=== PATIENT | male | born 1985 | race Caucasian/White ===

== ENCOUNTER 2016-11-11 01:04 | Emergency (ER) | payer MEDICAID, OTHER, SELFPAY ==
[~2016-11-11] VITALS: Ht 172.7 cm; Wt 83.9 kg
[2016-11-11] MEDS ORDERED: KETOROLAC 30 MG/ML VIAL (J1885) IV ONE (01:30)
[2016-11-11] MEDS ORDERED: ONDANSETRON 4MG/2ML VIAL (J2405) As Ordered ONE (01:38)
[2016-11-11] MEDS ORDERED: ONDANSETRON 4MG/2ML VIAL (J2405) IV ONE (01:45)
[2016-11-11 02:01] LABS: CALCIUM OXALATE CRYSTALS SMALL
[2016-11-11 02:05] LABS: BASO # 0.1 K/mm3 (0.0-0.2); BASO % 0.5 % (0.0-1.0); EOS # 0.2 K/mm3 (0.0-0.50); EOS % 1.3 % (0.0-3.0); LARGE UNSTAINED CELL # 0.3 K/mm3 (0.0-0.4); LARGE UNSTAINED CELL % 1.8 % (0.0-4.0); LYMPH # 1.7 K/mm3 (1.5-4.5); MEAN CORPUSCULAR HEMOGLOBIN 32.9 pg (27.0-33.0); MEAN CORPUSCULAR HGB CONC 36.2 g/dl (32.0-36.5); MEAN CORPUSCULAR VOLUME 90.8 fl (80.0-96.0); MONO # 1.1 K/mm3 (0.0-0.8); MONO % 6.3 % (0.0-5.0); NEUTROPHILS % 80.1 % (36.0-66.0); PLATELET COUNT, AUTOMATED 214 k/mm3 (150-450); RED CELL DISTRIBUTION WIDTH 11.7 % (11.5-14.5); WHITE BLOOD COUNT 17.4 K/mm3 (4.0-10.0)
[2016-11-11] MEDS ORDERED: TAMSULOSIN 0.4 MG CAP PO ONE (02:15)
[2016-11-11] MEDS ORDERED: HYDROmorphone HCL 1 MG/ML SYRINGE (J1170) IV ONE (02:15)
[2016-11-11 02:16] LABS: ALBUMIN/GLOBULIN RATIO 1.38 (1.00-1.93); ALKALINE PHOSPHATASE 117 U/L (45-117); ALT/SGPT 18 U/L (12-78); AMYLASE 46 U/L (25-115); ANION GAP 9 MEQ/L (8-16); AST/SGOT 13 U/L (15-37); BILIRUBIN,DIRECT 0.3 MG/DL (0.0-0.2); BILIRUBIN,TOTAL 1.9 MG/DL (0.2-1.0); BLOOD UREA NITROGEN 20 MG/DL (7-18); CALCIUM LEVEL 8.9 MG/DL (8.5-10.1); CARBON DIOXIDE LEVEL 31 MEQ/L (21-32); CHLORIDE LEVEL 102 MEQ/L (98-107); CREATININE FOR GFR 1.34 MG/DL (0.70-1.30); GLOMERULAR FILTRATION RATE > 60.0 (>60); GLUCOSE, FASTING 113 MG/DL (70-105); POTASSIUM SERUM 3.4 MEQ/L (3.5-5.1); SODIUM LEVEL 142 MEQ/L (136-145); TOTAL PROTEIN 6.9 GM/DL (6.4-8.2)
--- NOTE | 2016-11-11 02:40 | REPUSA ---
CLINICAL HISTORY: Abdominal pain. TECHNIQUE: Multiple axial, sagittal and coronal CT images were obtained through the abdomen and pelvi s without administration of oral or IV contrast material. COMMENTS: The liver is of uniform attenuation without mass or defect. There is no intra or extrahepatic biliary ductal dilatation. The spleen is normal. The gallbladder is within normal limits. The pancreas is of normal contour and attenuation characteristics. There is no evidence of adrenal mass. 3 mm obstructing stone of the right ureterovesical junction. Mild right hydroureteronephrosis. Fluid-filled distended stomach suggestive of gastroparesis. No renal or left ureteral calculi are identified. There is no left hydroureter or hydronephrosis. There is no evidence for appendicitis. There is no bowel wall thickening. No evidence for small or la rge bowel obstruction. There is no evidence of abdominal ascites or lymphadenopathy. There is no evidence of intrinsic or extrinsic bladder mass. There is no pelvic ascites or lymphadeno addison. Images of the lung bases show no evidence of pleural or parenchymal mass. There are no pleural effusi ons. The bony structures are free of lytic or blastic lesions. IMPRESSION: Obstructing stone of the right ureterovesical junction. Gastroparesis. Thank you for your kind referral of this patient.
[2016-11-11] MEDS ORDERED: NS 1,000 ML IV ONE (03:15)
[2016-11-11 05:06] VITALS: BP 122/65
[2016-11-11] MEDS ORDERED: ZOFR4TAB3 PO (13:34)
[2016-11-11] MEDS ORDERED: PERC5TAB6 PO (13:34)
== END 2016-11-11 05:08 | disposition home or self-care (01) ==
LOC: M ED 02:35
DX: N20.1 Calculus of ureter (principal); Z87.442 Personal history of urinary calculi; Z88.8 Allergy status to other drugs, medicaments and biological substances
CPT/HCPCS: 36415; 74176; 80048; 80076; 81001; 82150; 83690; 85025; 87086; 96361; 96374; 96375; 99283; J1170; J1885; J2405

== ENCOUNTER 2016-11-11 12:17 | Emergency (ER) | payer MEDICAID, SELFPAY ==
[~2016-11-11] VITALS: Ht 170.2 cm; Wt 83.9 kg
[2016-11-11] MEDS ORDERED: MORPHINE 4 MG/ML 1ML SYRINGE IV ONE (12:45)
[2016-11-11] MEDS ORDERED: ONDANSETRON 4MG/2ML VIAL (J2405) IV ONE (12:45)
[2016-11-11] MEDS ORDERED: NS 1,000 ML IV SCH (12:45)
[2016-11-11] MEDS ORDERED: KETOROLAC 30 MG/ML VIAL (J1885) IV ONE (12:45)
[2016-11-11 13:09] LABS: MEAN CORPUSCULAR HEMOGLOBIN 33.4 pg (27.0-33.0); MEAN CORPUSCULAR HGB CONC 36.1 g/dl (32.0-36.5); MEAN CORPUSCULAR VOLUME 92.5 fl (80.0-96.0); RED CELL DISTRIBUTION WIDTH 11.5 % (11.5-14.5); WHITE BLOOD COUNT 14.6 K/mm3 (4.0-10.0)
[2016-11-11 13:22] LABS: CALCIUM LEVEL 8.4 MG/DL (8.5-10.1); CREATININE FOR GFR 1.6 MG/DL (0.70-1.30); GLOMERULAR FILTRATION RATE 53.9 (>60)
[2016-11-11] MEDS ORDERED: PERC5TAB6 PO (13:34)
[2016-11-11] MEDS ORDERED: ZOFR4TAB3 PO (13:34)
[2016-11-11 13:37] VITALS: BP 110/55
--- NOTE | 2016-11-11 13:59 | REP ---
Renal ultrasound: Comparison is a CT abdomen pelvis performed 01:33 a.m. today. On the comparison CT there was a 3 mm ureteral calculus in the distal right ureter and mild right hydronephrosis. On the ultrasound study the right kidney demonstrates mild hydronephrosis. There is questionably a nonobstructive calculus in the upper pole of the right kidney, however, no right renal calculus was identified on the comparison CT. There is no right renal mass or cyst. The right kidney is normal size measuring 10.7 x 5.6 x 4.9 cm. Left kidney: Left kidney is normal size measuring 10.9 x 5.5 x 5.1 cm. There is no hydronephrosis, calculus, mass or cyst. The urinary bladder is collapsed and cannot be assessed. Impression: Mild right hydronephrosis. Signed by Hudson Moran MD 11/11/2016 01:50 P
== END 2016-11-11 13:57 | disposition home or self-care (01) ==
LOC: M ED 13:09
DX: N20.1 Calculus of ureter (principal); Z87.442 Personal history of urinary calculi; F17.210 Nicotine dependence, cigarettes, uncomplicated; Z88.8 Allergy status to other drugs, medicaments and biological substances
CPT/HCPCS: 76775; 80048; 85027; 96374; 96375; 99282; J1885; J2405

== ENCOUNTER → 2017-03-19 | Outpatient (CLI) | payer SELFPAY ==
[~2017-03-19] MED LIST: PERC5TAB12 PO; ZOFR4TAB3 PO
== END ==
LOC: M OUTALCOH 12:23
PROVIDERS: ATTEND Psychiatry & Neurology Psychiatry
DX: F12.20 Cannabis dependence, uncomplicated (principal); F15.20 Other stimulant dependence, uncomplicated

== ENCOUNTER 2018-03-26 09:00 | Emergency (ER) | payer OTHER, SELFPAY | END 2018-03-26 09:59 | disposition home or self-care (01) | LOC: M ED 09:00 | DX: H66.002 Acute suppurative otitis media without spontaneous rupture of ear drum, left ear (principal); F43.10 Post-traumatic stress disorder, unspecified; K21.9 Gastro-esophageal reflux disease without esophagitis; Z88.8 Allergy status to other drugs, medicaments and biological substances | CPT/HCPCS: 99282 ==

== ENCOUNTER 2018-04-28 10:56 | Emergency (ER) | payer OTHER, SELFPAY ==
[2018-04-28] MEDS: NS 1,000 ML IV ×2 (12:04)
[2018-04-28] MEDS: ONDANSETRON 4MG/2ML VIAL (J2405) IV ×2 (12:04)
[2018-04-28] MEDS: KETOROLAC 30 MG/ML VIAL (J1885) IV ×2 (12:04)
[2018-04-28 12:09] LABS: BASO % 0.5 % (0.0-1.0); EOS # 0.3 10^3/uL (0.0-0.50); EOS % 3.5 % (0.0-3.0); HEMATOCRIT 42.9 % (42.0-52.0); HEMOGLOBIN 14.7 g/dl (13.5-17.5); IMMATURE GRANULOCYTE % 0.4 % (0-3.0); LYMPH # 1.8 10^3/uL (1.5-4.5); LYMPH % 23.1 % (24.0-44.0); MEAN CORPUSCULAR HGB CONC 34.3 g/dl (32.0-36.5); MEAN CORPUSCULAR VOLUME 93.5 fl (80.0-96.0); MONO # 0.6 10^3/uL (0.0-0.8); MONO % 8.2 % (0.0-5.0); NEUTROPHILS % 64.3 % (36.0-66.0); PLATELET COUNT, AUTOMATED 181 10^3/uL (150-450); RED BLOOD COUNT 4.59 10^6/uL (4.30-6.10); RED CELL DISTRIBUTION WIDTH 11.5 % (11.5-14.5); WHITE BLOOD COUNT 7.7 10^3/uL (4.0-10.0)
[2018-04-28 12:13] LABS: KETONE, URINE AUTO RFX NEGATIVE (NEGATIVE); LEUKOCYTE ESTERASE UR AUTO RFX NEGATIVE (NEGATIVE); MUCUS, URINE RFX SMALL (NEGATIVE); NITRITE, URINE AUTO RFX NEGATIVE (NEGATIVE); RBC, URINE AUTO RFX 0 /HPF (0-3); SPECIFIC GRAVITY UR AUTO RFX 1.008 (1.002-1.035); SQUAM EPITHELIAL CELL UR AURFX 0 /HPF (0-6); WBC, URINE AUTO RFX 0 /HPF (0-3)
[2018-04-28] MEDS: methylPREDNISolone INJ 125 MG/2 ML VIAL (J2930) IV ×2 (12:18)
[2018-04-28] MEDS: diphenhydrAMINE INJ 50MG/ML VIAL (J1200) IV ×2 (12:18)
[2018-04-28 12:36] LABS: ALBUMIN 3.9 GM/DL (3.2-5.2); ALBUMIN/GLOBULIN RATIO 1.34 (1.00-1.93); ALKALINE PHOSPHATASE 91 U/L (45-117); ALT/SGPT 36 U/L (12-78); ANION GAP 5 MEQ/L (8-16); AST/SGOT 25 U/L (7-37); BILIRUBIN,DIRECT 0.2 MG/DL (0.0-0.2); BILIRUBIN,TOTAL 1.2 MG/DL (0.2-1.0); BLOOD UREA NITROGEN 15 MG/DL (7-18); CALCIUM LEVEL 8.5 MG/DL (8.5-10.1); CARBON DIOXIDE LEVEL 31 MEQ/L (21-32); CHLORIDE LEVEL 107 MEQ/L (98-107); CREATININE FOR GFR 1.17 MG/DL (0.70-1.30); GLOMERULAR FILTRATION RATE > 60.0 (>60); GLUCOSE, FASTING 77 MG/DL (70-100); LIPASE 111 U/L (73-393); POTASSIUM SERUM 4.2 MEQ/L (3.5-5.1); SODIUM LEVEL 143 MEQ/L (136-145); TOTAL PROTEIN 6.8 GM/DL (6.4-8.2)
[2018-04-28] MEDS ORDERED: ISOVUE-370 76% 100ML VIAL (Q9967) As Ordered ×2 (13:07)
== END 2018-04-28 14:06 | disposition home or self-care (01) ==
LOC: M ED 10:56
DX: R10.11 Right upper quadrant pain (principal); R10.31 Right lower quadrant pain; R11.2 Nausea with vomiting, unspecified; K21.9 Gastro-esophageal reflux disease without esophagitis; Z87.442 Personal history of urinary calculi; F43.10 Post-traumatic stress disorder, unspecified; Z88.3 Allergy status to other anti-infective agents; Z79.899 Other long term (current) drug therapy; Z72.0 Tobacco use
CPT/HCPCS: J1200

== ENCOUNTER 2018-06-16 20:16 | Emergency (ER) | payer OTHER ==
[2018-06-16 21:05] LABS: INFLUENZA A AMPLIFICATION NEGATIVE (NEGATIVE); INFLUENZA B AMPLIFICATION NEGATIVE (NEGATIVE)
[2018-06-16] MEDS: IBUPROFEN 600 MG TAB PO (21:30)
[2018-06-16] MEDS: PSEUDOEPHEDRINE 30 MG TAB PO (21:50)
[2018-06-16] MEDS: MAGIC MOUTHWASH SUSPENSION BTL SS (21:50)
== END 2018-06-16 22:34 | disposition home or self-care (01) ==
LOC: M ED 20:16
DX: J06.9 Acute upper respiratory infection, unspecified (principal); B34.9 Viral infection, unspecified
CPT/HCPCS: 71046

== ENCOUNTER 2020-03-15 18:36 | Emergency (ER) | payer OTHER ==
[~2020-03-15] VITALS: Ht 175.3 cm; Wt 79.7 kg
[~2020-03-15 18:36] MED LIST changes: +AMOX500C PO; +FLON1SPR NARES; +IBUP-1022 PO; +LIDO2SOL17 PO; +PSEU120T32 PO; +ROBI1LIQ9 PO; +SUDA1TAB3 PO; +TESS100C PO; +ZOFR4TAB14 PO; -ZOFR4TAB3 PO
[2020-03-15 18:37] VITALS: BP 116/74
[2020-03-15] MEDS ORDERED: DOXY100C37 PO (21:44)
[2020-03-15] MEDS ORDERED: LIDOCAINE 1% SDV 5ML VIAL DILUENT ONE (21:45)
[2020-03-15] MEDS ORDERED: cefTRIAXone SOD 250MG VIAL (J0696 PER 250MG) IM ONE (21:45)
[2020-03-15] MEDS ORDERED: DOXYCYCLINE HYCLATE 100MG TABLET PO ONE (21:45)
[2020-03-16 14:35] LABS: HEPATITIS B SURFACE ANTIBODY POSITIVE (POSITIVE); HEPATITIS B SURFACE ANTIGEN NEGATIVE (NEGATIVE); HEPATITIS C VIRUS ABY INDEX 0.3 INDEX (<0.8); HIV 1&2 SCREEN CENTAUR NEGATIVE (NEGATIVE)
== END 2020-03-15 22:20 | disposition home or self-care (01) ==
LOC: M ED 18:36
DX: N41.9 Inflammatory disease of prostate, unspecified (principal); Z88.8 Allergy status to other drugs, medicaments and biological substances
CPT/HCPCS: 36415; 81001; 86706; 86780; 86803; 87340; 87389; 96372; 99283; J0696

== ENCOUNTER 2020-10-25 03:52 | Emergency (ER) | payer OTHER ==
[~2020-10-25] VITALS: Ht 175.3 cm; Wt 86.0 kg
[~2020-10-25 03:52] MED LIST changes: +DOXY100C37 PO
[2020-10-25] MEDS ORDERED: AMOX500C PO (06:17)
[2020-10-25] MEDS ORDERED: DEBR6.5S4 OTIC (06:17)
[2020-10-25 06:30] VITALS: BP 106/64
== END 2020-10-25 06:31 | disposition home or self-care (01) ==
LOC: M ED 03:52
DX: H61.22 Impacted cerumen, left ear (principal)

== ENCOUNTER 2021-02-17 07:20 | Emergency (ER) | payer OTHER ==
[~2021-02-17] VITALS: Ht 175.3 cm; Wt 81.6 kg
[~2021-02-17 07:20] MED LIST changes: +DEBR6.5S4 OTIC; -DOXY100C37 PO; +DOXY1CAP62 PO
[2021-02-17 07:21] VITALS: BP 104/64
[2021-02-17] MEDS ORDERED: AUGM875T28 PO (09:19)
[2021-02-17] MEDS ORDERED: CIPR7.5D5 AS (09:19)
== END 2021-02-17 09:28 | disposition home or self-care (01) ==
LOC: M ED 07:20
DX: H92.02 Otalgia, left ear (principal); H60.542 Acute eczematoid otitis externa, left ear; H66.92 Otitis media, unspecified, left ear; H61.22 Impacted cerumen, left ear; K21.9 Gastro-esophageal reflux disease without esophagitis; Z87.442 Personal history of urinary calculi; F43.10 Post-traumatic stress disorder, unspecified; F12.10 Cannabis abuse, uncomplicated; Z91.89 Other specified personal risk factors, not elsewhere classified